=== PATIENT | female | born 1980 | race Caucasian/White ===

== ENCOUNTER 2016-11-19 11:06 | Emergency (ER) | payer OTHER ==
[~2016-11-19] VITALS: Ht 160 cm; Wt 64.0 kg
[2016-11-19 11:16] VITALS: BP 115/72
--- NOTE | 2016-11-19 13:15 | NUR ---
35/M BIB FAMILY C/O TEMPORAL HEADACHES X 1 MONTH WORSENING X 2 DAYS WITH OS BLURRED VISION---DENIES RECENT INJURY BUT STATES SHE HIT HER HEAD 1 MONTH AGO BUT DENIES KO OR LOC. PAIN 8/10 ACHING NON-RADIATING. AAOx4, PERRLA, BREATHING EVEN AND UNLABORED. ERMD NOTIFIED OF PATIENT STATUS.
[2016-11-19] MEDS ORDERED: METOCLOPRAMIDE 10 MG/2 ML INJ VIAL IVP ONE (13:20)
--- NOTE | 2016-11-19 13:20 | NUR ---
Patient being evaluated by physician at bedside.
--- NOTE | 2016-11-19 13:22 | NUR ---
Note undone in EDM - 11/19/16 at 1334 by [facility] 35/M BIB FAMILY C/O TEMPORAL HEADACHES X 1 MONTH WORSENING X 2 DAYS WITH OS BLURRED VISION---DENIES RECENT INJURY. PAIN /10 ACHING NON-RADIATING. AAOx4, PERRLA, BREATHING EVEN AND UNLABORE. ERMD NOTIFIED OF PATIENT STATUS.
[2016-11-19] MEDS ORDERED: METOCLOPRAMIDE 10 MG TAB PO ONE (13:30)
[2016-11-19 15:45] VITALS: BP 121/71
--- NOTE | 2016-11-19 15:45 | NUR ---
Patient discharged with v/s stable. Written and verbal after care instructions given and explained. Patient alert, oriented and verbalized understanding of instructions. Ambulatory with steady gait. All questions addressed prior to discharge. ID band removed. Patient advised to follow up with PMD. Rx of REGLAN 10MG TABLET given. Patient educated on indication of medication including possible reaction and side effects. Opportunity to ask questions provided and answered.
== END 2016-11-19 15:45 | disposition home or self-care (01) ==
LOC: MED 11:06
DX: R51 Headache (principal); Z82.0 Family history of epilepsy and other diseases of the nervous system
CPT/HCPCS: 36415; 70450; 80053; 81001; 81025; 85025; 85651; 86140; 99285; J8597